=== PATIENT | female | born 1980 | race Hispanic/Latino ===

== ENCOUNTER 2016-05-08 20:23 | Emergency (ER) | payer MEDICAID ==
[~2016-05-08 20:23] MED LIST: PROM25SU46 RC
[2016-05-08 20:25] VITALS: BP 125/80; PULSE 126; RESP 20; O2SAT 100
--- NOTE | 2016-05-08 20:33 | ED.REPORT ---
HPI-General Illness Date of Service May 08, 2016 ED Provider: Jose Glaser MD Pt is a 35 y.o. [place]ian- speaking female who is 7 months presents to the ED c/o fever onset 3 hours prior to arrival. Pt reports associated headache , cough, congestion, and 1 episode of vomiting. She denies abdominal pain, vaginal bleeding, and urinary symptoms. Pt was instructed to seek care if she developed a fever and explains that is why she is in the ED. She denies recent sick contacts. Pt is Nursing Notes Stated Complaint: THROAT PAIN/FEVER/PREG Chief Complaint: FLU/Cold Symptoms Nursing Notes Reviewed: Yes Allergies: Coded Allergies: No Known Allergies (Verified , 06/05/12) Scheduled Promethazine HCl (Phenergan) 25 Mg Supp.rect 25 MG RC TID General Time Seen by MD: 20:32 Chief Complaint Fever Hx Obtained From: Patient Arrived By: Walk-in Sudden in Onset?: Yes Onset Occurred: 1 - 4 hours ago Symptom Duration: Since onset Severity: Current: No pain currently Similar Sx Previous: No Past Medical History Past Medical History Notes: Past Medical History None reported Past Surgical History Reports: Review of Systems Full Review of Systems Constitutional: Reports: Fever Ears / Nose / Throat: Reports: Nasal congestion Respiratory: Reports: Non-productive cough GI: Reports: Vomiting, Denies: Abdominal pain Female: Reports: , Denies: Dysuria, Flank pain, Hematuria, Urinary frequency, Urinary urgency, Urination decreased, Urination increased, Vaginal bleeding - abnl Neurologic: Reports: Headache Complete sys rev & neg: except as marked. Physical Exam Vital Signs Vital Signs Date Time Temp Pulse Resp B/P Pulse Ox O2 Delivery O2 Flow Rate FiO2 05/08/16 20:25 37.4 126 20 125/80 100 Room Air Initial VS: Reviewed Head / Eyes: Atraumatic, Normocephalic ENT: Mucous membranes moist Extremities: Vascular intact, Neuro intact Skin: Warm, Dry, No cyanosis Neurologic: Alert, Oriented, Nonfocal Psychiatric: Mood/affect normal, Behavior normal, Normal thought content General/Constitutional: Awake, Alert, No acute distress, Well appearing, Well developed, Well hydrated, Well nourished Respiratory / Chest: Atraumatic, Breath sounds NL, Breath sounds = bilat, No respiratory distress, No rales, No rhonchi, No wheezing, No retractions, No stridor Cardiovascular: Heart rate NL, Regular rhythm, Heart sounds NL, No gallop, No murmurs, No rubs, Peripheral circulation NL Abdomen: Atraumatic, Non-tender Gravid Re-Eval/Medical Decision Med Decision/Clinical Course The patient is a generally healthy at approximately 7 months of who presents the emergency department complaining of subjective fever, headache and nasal congestion. She presents to the emergency department because she thinks she may have had a fever and was told previously that she should be "checked out" if she has a fever. Here the emergency department she is fully tachycardic but hemodynamically stable and afebrile. She is nontoxic appearing and in no apparent distress. She has had no abdominal cramping or vaginal bleeding and her abdominal examination is benign. Auscultation of her lungs is clear and her presentation is not suggestive of bacterial pneumonia. At this time I do not feel that laboratory or imaging studies are indicated. She does not desire treatment of her symptoms but rather seeks reassurance. She will go directly upstairs to labor and delivery for heart tones will be checked. She was discharged in stable condition. Follow-up and return precautions were reviewed in detail. Source of Hx: Old records Counseled Regarding: Diagnosis, Need for follow-up, When/why to return to ED Discharge & Departure Primary Impression: Upper respiratory infection URI type: unspecified URI Qualified Code: J06.9 - Acute upper respiratory infection, unspecified Additional Impression: Weeks of gestation: 28 weeks Qualified Code: Z3A.28 - 28 weeks gestation of Disposition: Home Discharge Condition All VS Reviewed: Yes Condition: Stable Additional Instructions: Thank you for seeking care at emergency room. It is difficult for us to make definitive diagnoses in the ED but we believe that you are experiencing an upper respiratory infection. Our primary goal today in the ED was to evaluate you for any life-threatening conditions. Your evaluation was reassuring. You should go directly to labor and delivery to have heart tones checked but at this time we see no signs that you are experiencing a miscarriage. You should return to the ED immediately if you develop abdominal pain/cramping, vaginal bleeding, fevers, vomiting, cough, shortness of breath, chest pain, lightheadedness, weakness or any other concerning signs or symptoms. Thank you for letting us partake in your care today. Referrals: Ga Go MD (PCP) Benoit Attestation Portions of this note were transcribed by Marcial Nicole. I, Dr. Glaser personally performed the history, physical exam and medical decision-making; I reviewed and confirmed the accuracy of the information in the transcribed note. Signed by: Benoit River, 05/08/2016 and 0778. copies to: Ga Go MD, Beck O MD May 08, 2016 20:33 MARCIAL NICOLE May 08, 2016 20:53
== END 2016-05-08 21:00 | disposition home or self-care (01) ==
LOC: SED 20:23
DX: O99.513 Diseases of the respiratory system complicating pregnancy, third trimester (principal); J06.9 Acute upper respiratory infection, unspecified; Z3A.28 28 weeks gestation of pregnancy

== ENCOUNTER 2016-05-16 14:34 | Emergency (ER) | payer MEDICAID ==
[~2016-05-16] VITALS: Ht 170.2 cm; Wt 164.0 kg
[2016-05-16 14:42] VITALS: BP 123/79; PULSE 110; RESP 20; O2SAT 97
--- NOTE | 2016-05-16 15:44 | ED.REPORT ---
[facility] Illness Date of Service May 16, 2016 ED Provider: Tha Brasher MD Pt is a 7.5 month 35 y/o female with a history of who presents to the ED with generalized myalgia. Pt reports onset of symptoms yesterday after having flu vaccine and tetanus shot 2 days ago. She took two Tylenol, but woke this morning feeling unwell. Pt reports fever, chills, vomiting x1, nausea, right arm pain, and body aches. She also has not been eating or drinking normally today. Pt denies diarrhea, sore throat, nasal congestion, cough, SOB, or pain while urinating. The pt has been exposed to other ill individuals at work. Nursing Notes Stated Complaint: FEVER,CHILLS Chief Complaint: FLU/Cold Symptoms Nursing Notes Reviewed: Yes (Synthox not reconciled) Allergies: Coded Allergies: No Known Allergies (Verified , 06/05/12) Scheduled Promethazine HCl (Phenergan) 25 Mg Supp.rect 25 MG RC TID Scheduled PRN Ondansetron ODT (Ondansetron ODT) 8 Mg Tab.rapdis 8 MG PO Q4H PRN PRN For Nausea In Setswana Please General Time Seen by Provider: 15:38 Chief Complaint Body aches Hx Obtained From: Patient, [employer] Machine Operator Arrived By: Walk-in Onset Occurred: 1 day ago Symptom Duration: Since onset Severity: Current: Mild Severity: Maximum: Mild Context: Immunization Status General: All up to date Immunizations Up to Date: Tetanus, Seasonal influenza Recent Healthcare: Recent doctor visit, Recent hospitalization Similar Sx Previous: No Past Medical History Past Medical History none reported Past Surgical History Smoking History Unknown if Ever Smoker Social History Other Social History: Good social support Ambulatory Status Independent Review of Systems Review of Systems Note: decreased eating and drinking Constitutional: Reports: Chills, Fatigue, Fever, Weakness - generalized Ears / Nose / Throat: Denies: Nasal congestion, Sore throat Respiratory: Denies: Non-productive cough, Shortness of breath GI: Reports: Nausea, Vomiting, Denies: Diarrhea Musculoskeletal: Reports: Extremity pain (right arm), Myalgia Neurologic: Reports: Lightheaded Complete sys rev & neg: except as marked. Female: Denies: Dysuria Physical Exam Physical Exam Notes: heart tones normal. Rate in the 150s Initial Vital Signs Vital Signs (First) Date Time Temp Pulse Resp B/P Pulse Ox O2 Delivery O2 Flow Rate FiO2 05/16/16 14:42 37 110 20 123/79 97 Room Air Initial VS: Reviewed, Vital signs normal Head / Eyes: Atraumatic, Normocephalic, PERRL ENT: Mucous membranes moist, Conjunctiva normal, No scleral icterus Abdomen / GI: Soft, Non-tender, No guarding, No rebound, No distention Lymphatic: No lymphadenopathy Psychiatric: Mood/affect normal, Behavior normal, Normal thought content General/Constitutional: Awake, Alert, Not toxic appearing fatigued nearly tearful at times gravid Neck: Atraumatic, Supple Respiratory / Chest: Atraumatic, Breath sounds NL, Breath sounds = bilat, No respiratory distress not tachypneic Cardiovascular: Regular rhythm, Heart sounds NL, No murmurs Heart Rate / Rhythm: Positive: Tachycardia Skin: Atraumatic, Color NL, No rash, Warm, Dry Neurologic: Oriented X3, Speech NL, No motor deficits, No sensory deficits Upper Extremity / MS: Full range of motion right shoulder 2 cm area of faint erythema no induration, cellulitis, or findings of abscess complaining of right arm soreness Interpretation & Diagnostics Lab Results Interpretation Result Diagram: 05/16/16 1618 05/16/16 1618 Test 05/16/16 16:18 05/16/16 18:00 White Blood Count 9.1th/mm3 (3.8-10.1) Red Blood Count 4.05mil/mm3 (3.90-5.20) Hemoglobin 10.6g/dL (12.0-15.6) Hematocrit 32.7% (35.0-46.0) Mean Corpuscular Volume 80.7fL (81-100) Mean Corpuscular Hemoglobin 26.2pg (27.0-35.0) Mean Corpuscular Hemoglobin Concent 32.4% (32.0-37.0) Red Cell Distribution Width 13.8% (12.3-15.4) Platelet Count 238bil/L (150-400) Neutrophils (%) (Auto) 78.1% (40-74) Lymphocytes (%) (Auto) 13.7% (14-46) Monocytes (%) (Auto) 6.9% (4-12) Eosinophils (%) (Auto) 0.2% (0-5) Basophils (%) (Auto) 0.1% (0-3) Sodium Level 133mEq/L (134-144) Potassium Level 3.9mEq/L (3.5-5.2) Chloride Level 99mEq/L (97-108) Carbon Dioxide Level 21mmol/L (18-29) Blood Urea Nitrogen 5mg/dL (6-20) Creatinine 0.46mg/dL (0.57-1.00) Estimat Glomerular Filtration Rate 220mL/min (>59) Glucose Level 86mg/dL (60-99) Lactic Acid Level 1.1mmol/L (0.4-2.0) Calcium Level 8.5mg/dL (8.5-10.1) Total Bilirubin 0.4mg/dL (0.0-1.2) Aspartate Amino Transf (AST/SGOT) 14U/L (0-50) Alanine Aminotransferase (ALT/SGPT) 8U/L (0-32) Alkaline Phosphatase 136U/L (25-150) Total Protein 6.8g/dL (6.4-8.4) Albumin 2.8g/dL (3.4-5.0) Urine Color Yellow (YELLOW) Urine Appearance Clear (CLEAR,HAZY) Urine pH 7.0 (5.0-8.0) Urine Specific [place] 1.015 (1.003-1.035) Urine Protein Negativemg/dL (NEG,TRACE) Urine Glucose (UA) Negativemg/dL (NEGATIVE) Urine Ketones Negativemg/dL (NEGATIVE) Urine Occult Blood Negative (NEGATIVE) Urine Nitrite Negative (NEGATIVE) Urine Bilirubin Negative (NEGATIVE) Urine Urobilinogen Normalmg/dL (NORMAL) Urine Leukocyte Esterase Small (NEGATIVE) Urine RBC 0-2/hpf (0-2) Urine WBC 0-5/hpf (0-5) Urine Epithelial Cells Occasional/hpf (NONE-MOD) Urine Crystals None seen (NONE SEEN) Urine Bacteria Few/hpf (NONE-FEW) Urine Hyaline Casts None/lpf (NONE) Urine Granular Casts None seen (NONE SEEN) Urine Waxy Casts None seen (NONE SEEN) Urine Red Blood Cell Casts None seen (NONE SEEN) Urine White Blood Cell Casts None seen (NONE SEEN) Urine Mucus Present (None Seen) Urine Trichomonas None seen (NONE SEEN) Urine Yeast None (NONE SEEN) Urinalysis Comment None Urine Culture Reflexed Indicated Lab Results Interpretation: CBC normal CMP normal Influenza negative U/A negative Re-Evaluation & [facility] Med Decision/Clinical Course This is a 35-year-old females more than 7 months who presents complaining of terrible body aches, and one episode of nausea. Reports she received both a flu vaccine and the tetanus vaccine in the same arm 2 days ago. She denies any known ill contacts. She reports being sore all over, the right arms but equally sore. Had subjective fever. She denies cough, shortness breath, she denies abdominal pain, vaginal bleeding discharge or dysuria. She denies diarrhea. She appears quite fatigued and moderately uncomfortable on exam-but she has normal vitals and was not febrile. She does not appear toxic or acutely ill. She is gravid, the abdomen is nontender heart tones are normal. She does have a trace area of 2cm with faint redness in the right shoulder, but she received 2 vaccines are-it does not appear overtly cellulitic, it is mildly tender as is the rest of the arm, but there is not localized findings of an abscess or infection that I appreciate. There are no other rashes or exanthems. Patient has also had a similar visit just over a week ago for concern for fever- no labs were drawn at this time. With Pwpv-le-pfil visits, and gravid status point at this point labs were and an evaluation performed. The patient felt dehydrated question IV. She had IV placed, blood work was normal, flu swab was negative. The patient received Tylenol, doses Zofran, and IV fluids-and a reevaluation so she feels back to normal. She is being discharged go directly to labor and delivery she is continuing and evaluation there. At this point the differential includes viral syndrome, versus simply a reaction to receiving a post-vaccication syndrome have received flu and tetanus vaccine in combination in recent days. Precautions reviewed. Patient is discharged in much improved condition. Source of Hx: Old records ( she needed) Re-Evaluation/Progress : Time of Eval: 17:39 Patient Status: Condition improved, Pain improved Re-Evaluation/Progress Note: Pt re-checked informed that all lab results are normal. She is told that she will be discharged from the ED and taken upstairs for further examination. Differential Diagnosis: Positive: Dehydration, Negative: Allergic rhinitis, Appendicitis, Bowel obstruction, Diabetes/DKA, Gastritis, Gastroenteritis, Inflam bowel disease, Meningitis, Pneumonia, Sepsis Counseled Regarding: Diagnosis, Lab results, Need for follow-up, When/why to return to ED Patient Discharge & Departure Impression: Primary Impression: Body aches Additional Impressions: Weeks of gestation: unspecified Qualified Code: Z33.1 - state, incidental Nausea Disposition: Home Discharge Condition All VS Reviewed: Yes Condition: Stable Additional Instructions: 1. Your blood tests were normal. Your flu test was negative. 2. Go directly to labor and delivery to complete the rest of your evaluation. 3. Continue Tylenol 1 g every 4 hours as needed for body aches. 4. Take ondansetron 8 mg-lead to solve underneath tongue-up to every 4 hours if needed for nausea. Referrals: Ga Go MD (PCP) Benoit Attestation Portions of this note were transcribed by Owen Toledo and Ty Payan. I , Dr. Brasher personally performed the history, physical exam and medical decision-making; I reviewed and confirmed the accuracy of the information in the transcribed note. Signed by: Benoit Cruz, and [id number]. copies to: Ga Go MD, Matthew F MD May 16, 2016 15:44 Owen Toledo May 16, 2016 16:08 TY PAYAN May 16, 2016 20:43
[2016-05-16] MEDS ORDERED: 0.9% Sodium Chloride 1,000 ML IV ONE (16:00)
[2016-05-16] MEDS ORDERED: Ondansetron 2 mg/mL 2 mL Inj IVPUSH ONE (16:00)
[2016-05-16 16:31] LABS: BASOPHILS % (AUTO) 0.1 % (0-3); EOSINOPHILS % (AUTO) 0.2 % (0-5); MONOCYTES % (AUTO) 6.9 % (4-12); Mean Corpuscular Hemoglobin 26.2 pg (27.0-35.0); Mean Corpuscular Volume 80.7 fL (81-100); NEUTROPHILS % (AUTO) 78.1 % (40-74); Platelet Count 238 bil/L (150-400)
[2016-05-16 18:00] VITALS: BP 118/72; PULSE 102; RESP 16; O2SAT 99
[2016-05-16 18:28] VITALS: BP 118/72; PULSE 102; RESP 16; O2SAT 99
[2016-05-16] MEDS ORDERED: ONDA8TAB10 PO (19:00)
[2016-05-16 20:00] LABS: APPEARANCE,URINE CLEAR (CLEAR,HAZY); COLOR,URINE YELLOW (YELLOW); OCCULT BLOOD,URINE NEGATIVE (NEGATIVE); UROBILINOGEN,URINE NORMAL (NORMAL)
== END 2016-05-16 19:04 | disposition home or self-care (01) ==
LOC: SED 14:34
DX: M79.1 Myalgia (principal); R11.2 Nausea with vomiting, unspecified; R50.9 Fever, unspecified; M79.601 Pain in right arm; E86.0 Dehydration; Z33.1 Pregnant state, incidental; Z98.890 Other specified postprocedural states
CPT/HCPCS: 36415; 80053; 81000; 83605; 85025; 87040; 87086; 87804; 96361; 96374; 99284; J2405; J7030

== ENCOUNTER 2016-06-29 05:45 | Inpatient (IN) | payer MEDICAID ==
[~2016-06-29] VITALS: Ht 152.4 cm; Wt 76.7 kg
[~2016-06-29 05:45] MED LIST changes: +ONDA8TAB10 PO
[2016-06-29] MEDS ORDERED: Oxytocin 10 Unit/mL Inj IM PRN ×2 (06:30→09:10)
[2016-06-29] MEDS ORDERED: Sodium Citrate-Citric Acid 15 mL Solution PO SCH (06:30)
[2016-06-29] MEDS ORDERED: Carboprost 250 mCg/mL Inj IM PRN ×2 (06:30→09:10)
[2016-06-29] MEDS ORDERED: Hemorrhage Kit, Post Partum XX ONE ×2 (06:30→09:10)
[2016-06-29] MEDS ORDERED: Methylergonovine 0.2 mg/mL Inj IM PRN ×2 (06:30→09:10)
[2016-06-29] MEDS ORDERED: CeFAZolin Inj 2 GM in IV Premix 1 EACH IV ONE (06:30)
[2016-06-29] MEDS: Lactated Ringer's 1,000 ML IV SCH ×5 (06:49→20:36)
[2016-06-29 06:54] LABS: Mean Corpuscular Hemoglobin 24.4 pg (27.0-35.0); Mean Corpuscular Volume 75.9 fL (81-100)
[2016-06-29] MEDS ORDERED: Morphine PF 1 mg/mL 10 mL Inj ONE (07:28)
[2016-06-29] MEDS ORDERED: fentaNYL-PF 50 mCg/mL 2 mL Inj ONE (07:29)
--- NOTE | 2016-06-29 07:43 | PCM.HPANE ---
Patient Data Date of Service: Jun 29, 2016 Surgeon Admitting Provider:Hallie Terrell MD Attending Provider:Hallie Terrell MD Primary Care Physician:Khurram Smith MD Other Provider:Aubrey Helton Anesthesia Reason for Visit repeat section with bilateral tubal Ht/WT & BMI Body Mass Index Allergies Coded Allergies: No Known Allergies (Verified , 06/29/16) Past Anesthesia History Anesthesia History: Denies:: Anesthesia Reactions, Fam Anesthesia Reaction Diabetes History Hx Diabetes?: No MRSA MRSA: No Medications Hypertension Medication: No Home Meds Incl Beta Terry: No Reported Medications Vit#96/Ferrous Fum/FA ( Tablet)1 Each Tablet1 Each PO 06/29/16 Butalbital/Acetamin/Caff 50-300-40 mg (Fioricet 50-300-40 mg)1 Each Capsule1 Capsule PO Q4H PRN Headache Ref 0 06/29/16 Discontinued Scripts Ondansetron ODT 8 Mg Tab.rapdis8 Mg PO Q4H PRN For Nausea #10 TABLET In Chinese Please Prov:Tha Brasher MD 05/16/16 Promethazine HCl (Phenergan)25 Mg Supp.rect25 Mg RC TID #14 SUPP Prov:Singh Dave MD 12/22/15 History History of ENT Problems?: No Hx of Heart Problems?: No Hx of Respiratory Problem?: No Hx Neurologic Problems?: No Hx of GI Problems?: No Hx of Problems?: No HX of Peritoneal Dialysis: No Female Hx: Positive for:: Currently Hx Musculoskeletal Problems?: No Hx of Psycho/Social Problems?: No Hx Surgeries?: Yes () Hx Any Other Health Problems?: No Hx Diabetes: No Hx Alcohol Use: NoHx Substance Use: NoHave You Smoked inLast 12 mo: No Stop/Bang Risk Assessment Category Category 1A: Patient has history of documented sleep apnea, and HAS NOT received any narcotic, sedative or anesthesia administration during this stay. Category 1B: Patient has history of documented sleep apnea, and HAS received any narcotic , sedative or anesthesia administration during this stay Category 2: Patient has SUSPECTED Obstructive Sleep Apnea, and HAS received any narcotic , sedative or anesthesia administration during this stay. Category 3: Patient has SUSPECTED Obstructive Sleep Apnea and HAS NOT received narcotic, sedative or anesthesia administration during this stay. Category 4: Outpatient in Procedural Areas with known sleep apnea or who screen positive for High Risk via the STOP/BANG questionnaire. Exam Exam General Appearance: Alert, Oriented X3, Cooperative, No Acute Distress HEENT/AIRWAY: MP 1, Neck Movement (FROM), Mouth Opening (>3 FB) Lungs: Clear to Auscultation, Normal Air Movement Heart: Exam Unremarkable, Regular Rate/Rhythm, No Murmurs/Rubs/Gallops Meds/Labs/Diagnostics Admission Meds Current Medications Lactated Ringer's 1,000 ml @ 125 mls/hr Q8H IV Last administered on 06/29/16 07:39; Start 06/29/16 at 06:28; Stop 06/29/16 at 14:27 Cefazolin Sodium/ Dextrose/Premix (Ancef Inj / D5W 50mL/IV Premix) 50 ml @ 100 mls/hr ONCE ONCE IV Last administered on 06/29/16 06:30; Start 06/29/16 at 06 :30; Stop 06/29/16 at 06:59; Status DC Labs Test 06/29/16 06:30 White Blood Count 6.2th/mm3 (3.8-10.1) Red Blood Count 4.68mil/mm3 (3.90-5.20) Hemoglobin 11.4g/dL (12.0-15.6) Hematocrit 35.5% (35.0-46.0) Mean Corpuscular Volume 75.9fL (81-100) Mean Corpuscular Hemoglobin 24.4pg (27.0-35.0) Mean Corpuscular Hemoglobin Concent 32.1% (32.0-37.0) Red Cell Distribution Width 15.2% (12.3-15.4) Platelet Count 189bil/L (150-400) Plan Impression Patient chart reviewed, patient interviewed and anesthestic plan with risks, benefits, and alternatives discussed, and informed consent obtained. NPO Status: Appropriate ASA Physical Status: ASA2 Mod Systemic Disease Anesthetic Plan: SAB Bene/Risks/Altern/Consents: Yes HP Complete Prior to Induction: Yes Julio Li MD Jun 29, 2016 07:43
[2016-06-29] MEDS ORDERED: EPHEDrine Sulfate 50 mg/mL Inj IVPUSH PRN (08:05)
[2016-06-29] MEDS ORDERED: Atropine 0.4 mg/mL Inj IV PRN (08:05)
[2016-06-29] MEDS ORDERED: Ondansetron 2 mg/mL 2 mL Inj IVPUSH PRN (08:05)
[2016-06-29] MEDS ORDERED: Dexamethasone 4 mg/mL Inj IVPUSH PRN (08:05)
[2016-06-29] MEDS ORDERED: Phenylephrine/NS-PF 100 mCg/mL 5 mL Syringe IVPUSH PRN (08:05)
[2016-06-29] MEDS ORDERED: HYDROmorphone 1 mg/mL Inj IVPUSH PRN (08:05)
[2016-06-29] MEDS ORDERED: fentaNYL-PF 50 mCg/mL 2 mL Inj IVPUSH PRN (08:05)
[2016-06-29] MEDS ORDERED: MetoCLOpramide 5 mg/mL 2 mL Inj ONE (08:06)
[2016-06-29] MEDS ORDERED: EPHEDrine/NS 5 mg/mL 5 mL Syringe ONE (08:06)
[2016-06-29] MEDS ORDERED: Ondansetron 2 mg/mL 2 mL Inj ONE (08:06)
[2016-06-29] MEDS ORDERED: Phenylephrine/NS 100 mCg/mL 10 mL Syringe IVPUSH ONE (08:06)
[2016-06-29] MEDS ORDERED: Bupiv-Spinal 0.75%/Dex 8.25% 2 mL Inj ONE (08:06)
[2016-06-29] MEDS ORDERED: PREN1TAB25 PO (08:40)
[2016-06-29] MEDS ORDERED: BUTA1CAP39 PO (08:40)
--- NOTE | 2016-06-29 08:41 | PCM.HPOB ---
Subjective Date of Service: Jun 29, 2016 Referring Provider: Admitting Physician: Hallie Terrell MD Primary Care Physician: Khurram Smith MD Attending Physician: Hallie Terrell MD Chief Complaint Term , repeat section History of Present History of Present Illness 35y/o female at 39w1d presenting [facility] for scheduled repeat low-transverse section. complicated by AMA and two prior deliveries. She did have an elevated DBP in the clinic on 06/10 and was sent to the [facility] for additional monitoring and labs. Repeat BPs wnl and PIH labs unremarkable. She does have a history of depression in 2012 without ongoing issues. She initially was planning for a bilateral tubal ligation as well but confirmed on admission she no longer wishes to have tubal ligation. She is considering control pills or an IUD for contraception. Labs: Blood type A+ Antibody screen- negative GBS-negative PAP test negative 01/2016 Varicella immune Rubella immune RPR nonreactive HBsAg negative HIV screen negative Chlamydia/Gonorrhea- negative Quad screen is negative done 03/06 HCV negative HbA1c 5.2% TSH 1.029 H/H 13.5/39.9 Past Medical History Obstetrical History: 2005 2006 2012 Gynecologic History: No hx of abnormal PAP smears Medical History: Depression, . 2013 Surgical History: section 2006, 2012 Hx Tobacco Use: No Hx Alcohol Use: No Hx Substance Use: No Past Family History Family History Mother- Hypertension Living Arrangement: with Family Review of Systems ROS Complete review of systems conducted and otherwise negative except as above in HPI. Allergy Coded Allergies: No Known Allergies (Verified , 06/29/16) Exam Vital Signs temp 37.1, BP 123/85, HR 90, RR 20 Exam FHR baseline 120, moderate variability, accelerations present, no decelerations. Constitutional: Well-developed Lungs: Clear to Auscultation Heart: Exam Unremarkable Abdomen: Gravid Extremities: Tenderness/Swelling Noted Neurological/Psychiatric: Alert, Oriented X3 Labs/Diagnostics Labs Laboratory Tests 06/29/16 06:30: White Blood Count 6.2, Red Blood Count 4.68, Hemoglobin 11.4, Hematocrit 35.5, Mean Corpuscular Volume 75.9, Mean Corpuscular Hemoglobin 24.4, Mean Corpuscular Hemoglobin Concent 32.1, Red Cell Distribution Width 15.2, Platelet Count 189 Ultra Sound US OB <14wks (01/03/16) -LMP 10/15/15 -LMP-based BERRY: 07/21/16 -First dating scan (01/03/16) -BERRY from first dating scan: 07/05/16 US OB>14wks Anatomy Complete (03/13/16) -Interval growth within normal limits -Normal anatomic survey US OB Placenta-Rule out abruption (05/25/16) -Anterior placenta without abruption identified. No sign of phase of previa or placenta previa. ERENDIRA wnl. Lab/Diagnostic Information Blood type A+ Antibody screen- negative GBS-negative PAP test negative 01/2016 Varicella immune Rubella immune RPR nonreactive HBsAg negative HIV screen negative Chlamydia/Gonorrhea- negative Quad screen is negative done 03/06 HCV negative HbA1c 5.2% TSH 1.029 H/H 13.5/39.9 Maternal Blood Type: A Hx Rho(D) Immune Globulin: Yes Group B Strep Results: Negative Rubella: Immune OB Intrapartum Assessment/Plan Assessment 35y/o female at 39w1d here for scheduled repeat section. complicated by AMA and two prior deliveries. Problems: (1) Term Plan: -Repeat low transverse section -Pt no longer wants tubal ligation -Oral pain medications post-op prn. (Ibuprofen, percocet) Status: Acute ICD Code: Z34.80 VTE Mechanical Devices: Intermittant Pneumatic CD Intrapartum plan Repeat low transverse section Post plan: Continue routine post care Attending Statement The patient was seen and examined together with Jacqueline Sanford DO on 2016 and I agree with the history, exam and plan as outlined in the note above Jacqueline Sanford DO Jun 29, 2016 07:32 Hallie Terrell MD Jul 10, 2016 13:31
[2016-06-29] MEDS ORDERED: LANOlin HPA 7 Gm Ointment TOPICAL PRN (09:10)
[2016-06-29] MEDS ORDERED: Oxytocin 30 Units/500 mL LR 30 UNITS in IV Premix 1 EACH IV PRN (09:10)
[2016-06-29] MEDS ORDERED: diphenhydrAMINE 50 mg Capsule PO PRN (09:10)
[2016-06-29] MEDS ORDERED: Sodium Chloride LOK Flush 10 mL Syringe IVFLUSH PRN (09:10)
[2016-06-29] MEDS ORDERED: hydrOXYzine Pamoate 25 mg Capsule PO PRN (13:55)
--- NOTE | 2016-06-29 21:27 | PCM.ANEP1 ---
Post Anesthesia Phase 1 PACU Phase 1 Assessment Date of Service: Jun 29, 2016 Anesthetic Administered: SAB Level of Alertness: Awake, talking SPARKS's with Equal Strength: Yes Pain: Yes Pain Scale Score: 4 Nausea or Vomiting: No Oxygen Delivery: Room Air Lungs: Clear to Auscultation Dermatome Level: Full Sensation Julio Li MD Jun 29, 2016 21:27
--- NOTE | 2016-06-29 21:28 | PCM.ANEP2 ---
Post Anesthesia Evaluation ASA/CMS Post Anesthesia Date of Service: Jun 29, 2016 VS in Patient's Normal Range?: Yes Resp Stable; Airway Patent?: Yes CV Function & Hydration Stable: Yes Mental Status Recovered?: Yes Pain control Satisfactory?: Yes N/V Control Satisfactory?: Yes Julio Li MD Jun 29, 2016 21:28
--- NOTE | 2016-06-29 21:53 | OP ---
[address] [address] OPERATIVE REPORT PATIENT: SUKUMAR RIOJAS : 1980 MR#: [id number] ADMIT: 06/29/2016 JOB ID: [id number] DATE OF SURGERY: 06/29/2016 SURGEON: Hallie Terrell MD. RN MEDICAL INPATIENT SERVICES: Kajal Narvaez MD. Dr. Narvaez was necessary for this procedure to help with exposure and delivery of . PREOPERATIVE DIAGNOSIS(ES): 1. Previous delivery x2. 2. Thirty-nine weeks gestation. 3. Abdominal adhesions. POSTOPERATIVE DIAGNOSIS(ES): 1. Previous delivery x2. 2. Thirty-nine weeks gestation, delivered. 3. Abdominal adhesions. PROCEDURE PERFORMED: 1. Repeat low transverse delivery. 2. Lysis of adhesions. ANESTHESIA: Spinal. ESTIMATED BLOOD LOSS: 600 mL. COMPLICATIONS: None. PATHOLOGY SENT: None. FINDINGS AT TIME OF SURGERY: Male infant in a cephalic presentation with infant weight of 3742 g with Apgars of 8 and 9. I Intraoperative findings showing dense omental adhesions to the posterior abdominal wall covering the lower uterine segment. Otherwise, the uterus, fallopian tubes, and ovaries were free of adhesions. Most of the adhesions were the omentum to anterior abdominal wall. Once the window was made in the omentum, the lower uterine segment and uterus were easily accessed. Otherwise normal-appearing ovaries and Fallopian tubes bilaterally. PROCEDURE: The patient was taken to the operating room, where her spinal anesthesia was found be adequate. She was placed in a lithotomy position in a leftward tilt and prepared and draped in a normal sterile fashion. A Pfannenstiel incision was made with a scalpel. This was carried down to the underlying fascia. The fascia in the midline was very thinned with omentum protruding through in several places. The scalpel was used to take make a transverse incision in the fascia. Eddy scissors were used to expand the fascial and rectus muscle incision laterally. Some of the omentum had to be dissected off of the fascial layers superiorly inferiorly. However, due to density, these were not taken down fully. A window was made in the peritoneum and this window was expanded exposing the lower uterine segment. There was no bowel adherent to the anterior abdominal wall. The uterus was then incised in a low transverse fashion with a scalpel. was delivered in a cephalic presentation without difficulty. Delayed cord clamping for 1 minute was allowed and then the cord was doubly clamped and ligated and handed off to the waiting respiratory therapist and nurse. Cord blood was sent. The placenta was removed manually. The uterus was then exteriorized, cleared of all clots and debris. The uterus was then exteriorized and repaired in two layers with 0-Vicryl suture. Good hemostasis assured. The gutters were then irrigated with copious amounts of normal saline and the uterus was returned to the patient's peritoneal cavity. More irrigation was performed and the lower uterine was again noted to be hemostatic. At this point, some of the adhesions of the omentum to the lower fascial edge were taken down with Bovie cautery and suture ligation. This was done to help expose the fascial edge, but again the fascial layers were poorly delineated at very thin. The fascia was reapproximated with 0-PDS suture. The two sutures of 0 PDS were used. There were anchored at the apices and ran to the midline and tied separately. Skin was closed with 4-0 Monocryl in a subcuticular fashion. Dermabond and Steri-Strips applied. All lap, instrument, and needle counts were correct x2 at the end of procedure. Patient was taken to her recovery room awake and in good condition.
[2016-06-30] MEDS: oxyCODONE-Acetamin 5-325 mg Tablet PO PRN ×4 (03:01→18:24)
[2016-06-30 07:06] LABS: Mean Corpuscular Hemoglobin 24.2 pg (27.0-35.0)
--- NOTE | 2016-06-30 07:45 | PCM.PNOBPP ---
Subjective Date of Service Jun 30, 2016 Post : Repeat Ceserean Delivery Visit History 35y/o G4 now P4 who presented to [facility] at 39w1d for repeat low- transverse section. complicated by AMA and two prior deliveries. She did have an elevated DBP in the clinic on 06/10 and was sent to the [facility] for additional monitoring and labs. Repeat BPs wnl and PIH labs unremarkable. She initially was planning for a bilateral tubal ligation as well but confirmed on admission she no longer wishes to have tubal ligation. She is considering control pills or an IUD for contraception. . Subjective Patient resting comfortably this morning. Pain is tolerable. Lochia normal. Pain Management: PO pain meds Gastrointestinal: No N/V Postop Activity: Ambulating Independently Labs Labs: Blood type A+ Antibody screen- negative GBS-negative PAP test negative 01/2016 Varicella immune Rubella immune RPR nonreactive HBsAg negative HIV screen negative Chlamydia/Gonorrhea- negative Quad screen is negative done 03/06 HCV negative HbA1c 5.2% TSH 1.029 H/H 13.5/39.9 . Group B Strep Results: Negative Rubella: Immune Blood Type: A Labs Laboratory Tests 06/30/16 06:50: Exam Vital Signs Vital Signs temp 37.2, BP 102/58, HR 75, SpO2 97% on room air. Vital Signs: VS reviewed, stable Exam Abdomen: Abdomen appropriately tender Lungs: Clear to Auscultation Heart: Exam Unremarkable General: Alert, Oriented X3 Surgical Wound : Incision General Appearence: No Discharge, No Inflammatory Changes Dressing & Drainage Status: Dry & Intact OB Post Assessment/Plan Assessment 35y/o G4 now P4 on post-operative day #1 after repeat low transverse section who is recovering appropriately. Problems: (1) Previous delivery, delivered Plan: -Encourage ambulation -Oral pain medications prn -Anticipate discharge at 48hrs post-op Status: Acute ICD Code: O34.21 (2) Term Status: Acute ICD Code: Z34.80 Pain Evaluation: Adequate Pain Control VTE Mechanical Devices: Intermittant Pneumatic CD Post plan: Continue routine post care Attending Statement POD1 after repeat c/section. Doing well. Continue with routine care. I saw and examined yvonneJacqueline Irwin DO Jun 30, 2016 07:05 Kajal Narvaez MDb 28, 2017 11:13
[2016-06-30] MEDS: Ascorbic Acid 500 mg Tablet PO SCH (08:06)
[2016-06-30] MEDS: Lactated Ringer's 1,000 ML IV SCH ×2 (09:08→17:08)
[2016-07-01] MEDS: oxyCODONE-Acetamin 5-325 mg Tablet PO PRN ×4 (00:17→18:17)
[2016-07-01] MEDS ORDERED: Oxytocin 30 Units/500 mL LR 30 UNITS in IV Premix 1 EACH IV PRN (05:45)
[2016-07-01] MEDS ORDERED: Lactated Ringer's 1,000 ML IV SCH (05:46)
--- NOTE | 2016-07-01 07:20 | PCM.DIMED ---
Discharge Instructions Date of Service Jul 01, 2016 Dates of Hospitalization Jun 29, 2016 at 5:45 am Discharge Diagnosis Discharge Diagnosis Repeat C Section Term Medication Instructions Percocet 5/325 mg, take 1 tab q4-6h PO PRN for pain, #40 Colace 100 mg BID PO PRN for constipation #80 Ferrous sulfate 325 mg PO daily, #90 Vitamin C 500 mg PO daily, #90. Take with iron Ibuprofen 800mg, take 1 tab q8h PO PRN for pain #60 Activity Other (pelvic rest for 6 weeks, no heavy lifting greater than 15 pounds for 4 weeks, balance rest and activity as pain allows.) Call your provider Shortness of breath, Bleeding, Chest pain, Vomitting, Excessive diarrhea, Weakness (unilateral) Patient Instructions Continue your vitamin. Please take the iron and vitamin c together for your anemia. Do not take more pain medication (Percocet) than is necessary -- less is better. Percocet pills have Tylenol (acetaminophen) in them at 325mg per pill. Do not take Tylenol in addition to your pain medication but should take one or the other. Both iron and Percocet can give you constipation so you have also been given a prescription for docusate to keep you regular. Be sure to follow up in 2 weeks and then again in 6 weeks at [facility]. Pelvic rest for 6 weeks (nothing per vagina including intercourse, tampons) If you have a fever greater than 100.4, please call [facility]. There is always someone product introduction manager to talk to. If you have an increase in bleeding, call [facility]. If you have a lot of bleeding suddenly, especially if you have symptoms of dizziness & weakness with it, get emergency help. When you see [facility] in two weeks, you will be informed of the results of all the labs. If you start experiencing extreme depression, especially if you feel that you are a danger to yourself or your family, seek emergency help. You have been through a lot -- BE SURE TO TAKE CARE OF YOURSELF. Follow-up plan Follow-up in 2 and 6 weeks at [facility] Anurag Gonzalez DO Jul 01, 2016 7:20 am
[2016-07-01] MEDS ORDERED: DOCU-41 PO (07:22)
[2016-07-01] MEDS ORDERED: OXYC1TAB24 PO (07:22)
[2016-07-01] MEDS ORDERED: Ascorbic Acid PO (07:22)
[2016-07-01] MEDS ORDERED: FERR-74 PO (07:22)
[2016-07-01] MEDS ORDERED: IBUP-1827 PO (07:22)
[2016-07-01] MEDS: Ascorbic Acid 500 mg Tablet PO SCH (08:21)
--- NOTE | 2016-07-01 13:51 | PCM.DC.OB ---
Obstetrical Discharge Summary Date of Service Jul 01, 2016 Date of hospital admission Jun 29, 2016 at 5:45 am Date of Discharge: Jul 01, 2016 Providers Admitting Physician: Hallie Terrell MD Primary Care Physician: Khurram Smith MD Attending Physician: Hallie Terrell MD Problems: (1) Previous delivery, delivered Status: Acute ICD Code: O34.21 (2) Term Status: Acute ICD Code: Z34.80 Brief History and Physical: 35y/o female at 39w1d [place] [facility] repeat low-transverse section. complicated by AMA and two prior deliveries. She did have an elevated DBP in the clinic on 06/10 and was sent to the [facility] for additional monitoring and labs. Repeat BPs wnl and PIH labs unremarkable. She does have a history of depression in 2012 without ongoing issues. She initially was planning for a bilateral tubal ligation as well but confirmed on admission she no longer wishes to have tubal ligation. She is considering control pills or an IUD for contraception. Labs: Blood type A+ Antibody screen- negative GBS-negative PAP test negative 01/2016 Varicella immune Rubella immune RPR nonreactive HBsAg negative HIV screen negative Chlamydia/Gonorrhea- negative Quad screen is negative done 03/06 HCV negative HbA1c 5.2% TSH 1.029 H/H 13.5/39.9 Physical Exam on Day of Discharge: Laying in bed. NAD Cardiovascular - RRR, no CMR. PP 2/4 Upper and lower extremities, equal BL. Pulm: CTA no RRW Abd - appropriately tender. Fundus at level of umbilicus. Surgical wound - Well approximated, intact, clean, no drainage, warmth, or erythema. Extremities - no edema. MSK - Able to move extremities on her own volition. Hospital Course: Pt underwent routine repeat delivery and had uncomplicated post op and post care. On day of discharge patient's pain was under control, was ambulating independently and stated she was comfortable with going home. ([Ascorbic Acid]) 500 MG TABLET 500 MG PO DAILYWM Prescribed by: ANURAG GRIFFITH, Butalbital/Acetamin/Caff 50-300-40 mg (Fioricet 50-300-40 mg) 1 Each Capsule 1 CAPSULE PO Q4H PRN PRN Headache (Reported) Last Taken: Unknown Dose on Unknown Date & Time Docusate Sodium (Colace) 100 Mg Capsule 100 MG PO BID Prescribed by: ANURAG GRIFFITH DO Ferrous Sulfate (Feosol) 325 Mg Tablet 325 MG PO BIDWM Prescribed by: ANURAG GRIFFITH DO Ibuprofen (Ibuprofen) 600 Mg Tablet 800 MG PO Q6H PRN PRN For Pain Prescribed by: ANURAG GRIFFITH DO Vit#96/Ferrous Fum/FA ( Tablet) 1 Each Tablet 1 EACH PO ( Reported) Last Taken: UNKNOWN on Unknown Date & Time oxyCODONE-Acetaminophen 5-325 mg (oxyCODONE-Acetaminophen 5-325 mg) 1 Each Tablet 1-2 TAB PO Q4H PRN PRN For Pain Prescribed by: ANURAG GRIFFITH DO Discontinued Medications Ondansetron ODT (Ondansetron ODT) 8 Mg Tab.rapdis 8 MG PO Q4H PRN PRN For Nausea In [place] Please Prescribed by: CLEVELAND GAGE MD Promethazine HCl (Phenergan) 25 Mg Supp.rect 25 MG RC TID Prescribed by: JASSI RAI MD Discharge Medications: As above. Disposition Home. Follow-up plan Follow up in [facility] in 2 and 6 wks. Discharge Diet: No restrictions Discharge Activity-General: Pelvic Rest for 6 weeks, Try not to overdue, Be up and about, Balance rest and activity, Ice incision 3-5 time/day for 20min, Activity as pain allows, Activity as energy allows, No lifting >15 pounds for 2 weeks Patient instructions Continue your vitamin. Please take the iron and vitamin c together for your anemia. Do not take more pain medication (Percocet) than is necessary -- less is better. Percocet pills have Tylenol (acetaminophen) in them at 325mg per pill. Do not take Tylenol in addition to your pain medication but should take one or the other. Both iron and Percocet can give you constipation so you have also been given a prescription for docusate to keep you regular. Be sure to follow up in 2 weeks and then again in 6 weeks at [facility]. Pelvic rest for 6 weeks (nothing per vagina including intercourse, tampons) If you have a fever greater than 100.4, please call [facility]. There is always someone salesperson recreational vehicles to talk to. If you have an increase in bleeding, call [facility]. If you have a lot of bleeding suddenly, especially if you have symptoms of dizziness & weakness with it, get emergency help. When you see [facility] in two weeks, you will be informed of the results of all the labs. If you start experiencing extreme depression, especially if you feel that you are a danger to yourself or your family, seek emergency help. You have been through a lot -- BE SURE TO TAKE CARE OF YOURSELF. Anurag Gonzalez DO Jul 01, 2016 1:51 pm
[2016-07-01 18:12] VITALS: BP 111/63; PULSE 62; RESP 18
== END 2016-07-01 18:45 | disposition home or self-care (01) | DRG 540 ==
LOC: FBC 05:45 → EDSTATUS 07:15
PROVIDERS: ADMIT Obstetrics & Gynecology; ATTEND Obstetrics & Gynecology
PROC: 10D00Z1 Extraction of Products of Conception, Low, Open Approach (ICD-10-PCS; principal; 2016-06-29 07:15)
DX: O34.211 Maternal care for low transverse scar from previous cesarean delivery (principal); Z37.0 Single live birth; Z3A.39 39 weeks gestation of pregnancy